=== PATIENT | male | born 1960 | race African-American/Black ===

== ENCOUNTER → 2019-08-24 | Emergency (ER) | payer BC ==
[~2019-08-24] VITALS: Ht 170.2 cm; Wt 79.4 kg
[~2019-08-24] MED LIST: ALEVE220 MG PO; BACITRACIN ZIN1 EAC1 TOP; BACTRIM DS TAB1 EAC1 PO; COZAAR 25 MG TA25 M1 PO; FLEXERIL PO; GLUCOSAMINE1000 MG PO; KEFLEX500 M1 PO; LISINOPRIL-HCT1 EACH PO; LISINOPRIL5 MG PO; NAPROSYN500 MG PO; PREDNISONE 20 M20 MG PO; TRIAMCINOLONE A15 GM; VICODIN 5-5001 EACH PO
[2019-08-24 13:07] VITALS: BP 107/69
== END ==
LOC: ER 12:22
DX: L08.9 Local infection of the skin and subcutaneous tissue, unspecified (principal); I10 Essential (primary) hypertension; M19.90 Unspecified osteoarthritis, unspecified site; F17.210 Nicotine dependence, cigarettes, uncomplicated; Z90.89 Acquired absence of other organs; Z90.79 Acquired absence of other genital organ(s); Z88.5 Allergy status to narcotic agent